=== PATIENT | male | born 1995 | race Caucasian/White ===

== ENCOUNTER 2025-09-02 14:40 | Inpatient (IN) | payer OTHER, MEDICARE, SELFPAY ==
--- OUTSIDE RECORDS SUMMARY | 2025-09-01 20:17 | XMS_ITS | Encounter Summary ---
Author Organization [facility] Address [address] [place] [id number] Care Team Providers Care Code And Test Clerk Name Role Phone Mauro Beck MD Primary Care Provider [phone] Reason for Visit * Reason Comments Suicidal * Auth/Cert (Routine) Specialty Diagnoses / Procedures Referred By Contac t Referred To Contact Diagnoses Suicidal ideations Major depressive disorder, recurrent, mild Alcohol dependence, uncomplicated Procedures ED obsv Referral ID Status Reason Start Date Expiration Date Visits Re quested Visits Authorized [id number] 1 1 Encounter Details Date Type Department Care Team (Latest Contact Info) Description 09/01/2025 8:17 PM EST - 09/02/2025 12:23 PM EST Hospital Encounter [facility] Emergency Department [address] [place] [id number] Scottie Maldonado MD [address] [place] [id number] Almas Deshpande MD [address] [place] [phone] John Jacob MD [address] [place] [phone] Suicidal ideation (Primary Dx); Depression, major, recurrent, mild; Severe alcohol use disorder ([facility]) Discharge Disposition: Psychiatric Hospital Social History Tobacco Use Types Packs/Day Years Used Date Smoking Tobacco: Never Assessed Sex and Gender Information Value Date Recorded Sex Assigned at Male 09/01/2025 8:43 PM EST Legal Sex Male 11:05 PM EST Gender Identity Male 09/01/2025 8:43 PM EST Sexual Orientation Not on file Travel History Travel Start Travel End [place] 08/02/2025 09/01/2025 documented as of this encounter Last Filed Vital Signs Vital Sign Reading Time Taken Comments Blood Pressure 97/56 09/02/2025 9:16 AM EST Pulse 110 09/02/2025 9:16 AM EST Temperature 36.6 C (97.9 F) 09/02/2025 9:16 AM EST Respiratory Rate 18 09/02/2025 9:16 AM EST Oxygen Saturation 95% 09/02/2025 9:16 AM EST Inhaled Oxygen Concentration - - Weight 95.3 kg (210 lb) 09/01/2025 8:25 PM EST Height 193 cm (6' 4 ) 09/01/2025 8:25 PM EST Body Mass Index 25.56 09/01/2025 8:25 PM EST documented in this encounter Functional Status * Are you deaf or do you have serious difficulty hearing? Answer Date of Assessment Author No 09/01/2025 8:43 PM EST Brianda Berger * Are you blind or do you have serious difficulty seeing, even when wearing glasses? Answer Date of Assessment Author No 09/01/2025 8:43 PM EST Brianda Berger * Do you have serious difficulty walking or climbing stairs? Answer Date of Assessment Author No 09/01/2025 8:43 PM EST Brianda Berger * Do you have difficulty dressing or bathing? Answer Date of Assessment Author No 09/01/2025 8:43 PM Brianda Cain * Because of a physical, mental, or emotional condition, do you have difficulty doing errands alone such as visiting the doctor? Answer Date of Assessment Author No 09/01/2025 8:43 PM EST Brianda Berger documented as of this encounter Mental Status * Because of a physical, mental, or emotional condition, do you have serious difficulty concentrating, remembering, or making decisions? Answer Entry Date Author No 09/01/2025 8:43 PM Brianda Cain documented in this encounter Discharge Instructions * Discharge Instructions* Scottie Maldonado MD - 09/02/2025 1:40 AM EST You were seen in the Emergency Department for reports of alcohol use and SI. You were admitted to ED observation after being medically cleared pending behavioral health clinician's final recommendations. Please call your doctor or return to the Emergency Department if the following occur: your symptomsget worse or do not improve,, or any other concerns. Please review all diagnostics (labs and imaging) and your Emergency Department visit with your doctor to determine if you need any additional tests, medications or other long-term management. Check MyChart or call your PCP for your pending results in the next 1-2 days. The results may indicate the need for further testing or management. A list of completed and pending results should be completed below. If not, please call the Emergency Department for more information. documented in this encounter Medications at Time of Discharge busPIRone (BUSPAR) 10 MG tablet Take 1 tablet (10 mg total) by mouth in the morning and 1 tablet (10 mg total) before bedtime. documented as of this encounter Consult Notes * Scotty Cruz, - 09/02/2025 1:18 AM ESTAssociated Order(s): BEHAVIORAL HEALTH CRISIS EVALUATION Behavioral Health Crisis Consult - Initial Assessment Patient: Michael Finnegan : 1995 Admit Date: 09/01/2025 Date of Consult: 09/02/2025 Time of Consult: 0118 AM Consult Requested by: Almas Deshpande MD Reason for Consult: Reason for Consult: Michael Finnegan, a 30-year-old male, self presents at [facility] for eval of alcohol intoxication and suicidal thoughts. Patient's BAL was 151 at 00:56.Patient told the ED that he had thoughts of using carbon monoxide poisoning. Patient reports that the parents brought him in. He reports that he was really intoxicated with alcohol. He says that hemade a comment about wanting to kill himself a couple ot times. He says that he was going to light himself off or use carbon monoxide. He has a history of suicide attempt. He has no history of inpatient psych admission. Patient reports that he feels nauseas. He lives with grandma and parents. He denies having current sucide thoughts. He denies HI, AH, VH or paranoia. He has a psychiatrist for anxiety and depression. Patient says that he uses alcohol daily with an estimate of 0.5 pints daily. Patient says that he made the SI comments due to sadness of where he is in his life. Per mother (Josefa n - [phone]), patient was actively pursuing the SI plan. Mother says that patient was driving to [place] and had a plan to go see lights in [place] and then off himself using carbon monoxide. He sent a text to his mother telling the mother to take care of his pony which is something very abraham to patient. Patient also told the mother that the mother would see him in the future. Given the aforementioned presentation, patient meets sec 12 criteria due to SI with active plan to use Carbon Monoxidepoisoning. [facility] clinician consulted with attending Dr. Scottie Maldonado and photographic supervisor Rayne Bond.Both consuls support inpatient psych placement. Chief Complaint Patient presents with Suicidal History of Present Illness: Patient is a 30 y.o. male with past medical and psychiatric history as listed who presented to the hospital on 09/01/2025 for Suicidal. Behavioral Health is consulted for SI with an active plan which per family, patient was actively pursuing. The patient is a 30-year-old male. Medical History: has no past medical history on file. has no past surgical history on file. Psychiatric History: History of psychiatric illness?: Yes History of suicidal ideation?: Yes History of non-suicidal self injury?: No History of interpersonal aggression?: No History of past DALE?: No Treatment History?: Yes Inpatient Treatment:: IOP Outpatient Treatment:: Outpatient Psychopharm Current Providers?: Yes Provider Type:: Psychiatrist Psychiatrist Name:: Dr. Pagan Collateral Contact: Yes (Spoke with patient's parents) Home Medications: Prescriptions Prior to Admission[1] Current Medications: Scheduled Medications[2] Current PRN: PRN Medications[3] Allergies: Latex, natural rubber Substance Use History Alcohol: Substance and Sexual Activity Alcohol Use Not on file In the past 12 months,have you had 5 or more drinks(men)/4 or more drinks (women) containing alcohol in one day?: Yes Use/ frequency per week:: Daily Number of drinks /type of alcohol/typical day: 1/2 pint daily Tobacco: has no history on file for tobacco use. Other: has no history on file for drug use. Addiction/Substance Use Substances last used: Never used Prescription Medications: In the past 12 months,have you used any prescription medications just for the feeling, more than prescribed or that were no prescribed for you?: No Substances: In the past 12 months, have you used any drugs?: No Medical and Psychiatric Consequences: Psychosocial Consequences: Social History: Patient lives with parents and grandma Socioeconomic History Marital status: Single Employment Status: Data Unavailable Type of Residence: Private residence Children?: No History: History Rufus status: No Personal History: History of trauma/significant life events/JORDAN?: Yes has no history on file for sexual activity. Family History: Family History[4] Family history of psychiatric illness?: No Family history of DALE?: Yes Family history of suicidal ideation, attempt or completed suicide?: Yes (Three successful SI completions in the family) Physical Exam: Patient Vitals for the past 24 hrs: BP Temp Temp src Pulse Resp SpO2 Height Weight 09/02/25 0110 105/59 -- -- (!) 92 16 95 % -- -- 09/01/25 2347 103/71 97.6 ??F (36.4 ??C) Oral (!) 96 18 94 % -- -- 09/01/25 2242 125/82 -- -- (!) 96 18 96 % -- -- 09/01/252024 -- -- -- -- -- -- 1.93 m (6' 4 ) 95.3 kg (210 lb) 09/01/252020 123/89 -- -- (!) 101 20 96 % -- -- Mental Status Exam: MSE Mental Status Exam: Appearance: good hygiene and stated age; appropriate eye contact; well kempt; clean Behavior: cooperative, calm, in good behavioral control Speech: regular rate, regular rhythm, and regular volume Language: Intact Mood: anxious, depressed Affect: Anxious, flat affect Thought Process: organized, goal-directed, logical, concrete, intact, and linear Thought Content: Endorses Si with plan which patient was actively pursuing; denies HI Hallucinations: absent Attention: attentive Concentration: WNL; intact Orientation: person, placement, date, location, president Memory: intact Fund of Knowledge: intact Impulse control: in good behavioral control Insight: Impaired Judgment: Impaired Labs, Imaging & Other Studies: Laboratory: Recent lab results have been reviewed and are notable for - see medical chart Results for orders placed or performed during the hospital encounter of 09/01/25 (from the past 24 hours) Magnesium Result Value Ref Range Magnesium, Blood 2.3 1.6 - 2.6 mg/dL Phosphorus Result Value Ref Range Phosphorus 3.0 2.3 - 4.6 mg/dL Lactic Acid with 3 Hour Reflex Result Value Ref Range Lactic Acid, Venous, Peripheral 1.4 0.5 - 2.0 mmol/L Blood Gas, Venous Result Value Ref Range pH, Venous 7.44 (H) 7.33 - 7.43 pCO2, Venous 39 38 - 50 mmHg pO2, Venous 64 (H) 30 - 50 mmHg HCO3, Venous 26 22 - 29 mmol/L Total CO2, Venous 27 22 - 27 mmol/L O2 Saturation, Venous 93.5 (H) 60 - 85 % Base Excess, Venous 2.0 -2.0 - 2.0 mmol/L Comprehensive Metabolic Panel Result Value Ref Range Sodium 145 135 - 146 mmol/L Potassium 3.8 3.4 - 5.2 mmol/L Chloride 106 98 - 110 mmol/L Total CO2/Bicarbonate 27 24 - 32 mmol/L Anion Gap 12 2 - 15 mmol/L BUN 15 7 - 24 mg/dL Creatinine, Blood 0.90 0.60 - 1.30 mg/dL Glucose, Blood 89 50 - 100 mg/dL Calcium 9.7 8.5 - 10.5 mg/dL Total Protein 8.0 6.2 - 8.2 g/dL Albumin, Blood 4.9 3.4 - 5.2 g/dL AST (SGOT) 27 11 - 40 U/L ALT (SGPT) 36 7 - 40 U/L Alkaline Phosphatase 82 40 - 130 U/L Total Bilirubin 0.3 0.2 - 1.2 mg/dL Estimated GFR(CKD-EPI) 119 mL/min/BSA CBC and Differential Result Value Ref Range WBC 6.22 3.90 - 10.80 K/uL RBC 5.23 4.42 - 5.73 M/uL Hemoglobin 15.4 14.0 - 17.3 g/dL Hematocrit 45.8 40.1 - 51.0 % MCH 29.4 25.6 - 32.2 pg MCHC 33.6 32.0 - 36.0 g/dL MCV 88 83 - 96 fL RDW 13.0 11.5 - 14.0 % Platelet Count 256 154 - 369 K/uL Neutrophil 50.0 % Lymphocyte 39.9 % Monocyte 7.1 % Eosinophil 1.1 % Basophil 0.5 % Immature Granulocyte (Kendalia, Myelo, Promyelocyte) 1.4 % Absolute Neutrophil Count 3.11 1.68 - 7.99 K/uL Absolute Immature Granulocyte (Kend[place], Myelo, Promyelocyte) 0.09 0.00 - 0.09 K/uL Absolute Lymphocyte Count 2.48 0.66 - 4.75 K/uL Absolute Monocyte Count 0.44 0.16 - 1.40 K/uL Absolute Eosinophil Count 0.07 0.00 - 0.60 K/uL Absolute Basophil Count 0.03 0.00 - 0.32 K/uL Toxicology Screen, Plasma Result Value Ref Range Acetaminophen Result,Blood <5 (L) 10 - 30 ug/mL Alcohol 151 (H) <10 mg/dL Salicylate Level, Blood <1 <30 mg/dL EKG: No studies were reviewed. C-SSRS Screener and SAFE-T: [place] Suicide Severity Rating Scale (C-SSRS) Screener 1) In the past month, have you wished you were or wished you could go to sleep and not wake up?: Yes If yes, describe (Past 1 Month): Active suicidal thoughts 2) In the past month, have you actually had any thoughts of killing yourself?: Yes If yes, describe (Past 1 Month): Active suicidal thoughts 3) Have you been thinking about how you might do this? (Past 1 Month): Yes If yes, describe (Past 1 Month): Carbon monoxide from car inhalation 4) Have you had these thoughts and had some intention of acting on them or do you have some intention of acting on them? (Past 1 Month): Yes 5) Have you started to work out or worked out the details of how to kill yourself? Did you intend to carry out this plan? (Past 1 Month): Yes If yes, describe (Past 1 Month): Has a plan 6a.) Have you ever done anything, started to do anything, or prepared to do anything to end your life?: No C-SSRS Screener Risk Level: High Management of Suicide Risk: Because the patient is actively suicidal, the patient will be further assessed for psychiatric inpatient level of care Assessment: Patient is a 30 y.o. male with past medical and psychiatric history as above now presents with suicidal thoughts with plan to via carbon monoxide poisoning. Per mother, patient was actively pursuing the plan to end his life noting that patient was en route to [place] to see the lights that before ending his life. She notes that patient sent text to her instructing her to take care of his abraham items and also to say goodbye to her. Patient has no previous inpatient admission. Patient's mother would prefer local placement in facilities such as [facility] or [facility]. Michael Finnegan, a 30-year-old male, self presents at [facility] for eval of alcohol intoxication and suicidal thoughts. Patient's BAL was 151 at 00:56. Patient told the ED that he had thoughts of using carbon monoxide poisoning. Patient reports that the parents brought him in. He reports that he was really intoxicated with alcohol. He says that he made a comment about wanting to kill himself a couple ot times. He says that he was going to light himself off or use carbon monoxide. Hehas a history of suicide attempt. He has no history of inpatient psych admission. Patient reports that he feels nauseas. He lives with grandma and parents. He denies having current sucide thoughts. He denies HI, AH, VH or paranoia. He has a psychiatrist for anxiety and depression. Patient says thathe uses alcohol daily with an estimate of 0.5 pints daily. Patient says that he made the SI comments due to sadness of where he is in his life. Per mother (Saige - [phone]), patient was activelypursuing the SI plan. Mother says that [place]. He sent a text to his mother telling the mother to take care of his pony which is something very abraham to patient. Patient also told the mother that the mother would see him in the future. Given the aforementioned presentation, patient meets sec 12 criteria due to SI with active plan to use Carbon Monoxide poisoning. Thsi clinician consulted with attending Dr. Scottie Maldonado and photographic supervisor Rayne Bond. Both consuls support inpatient psych placement. Recommendations: Sec 12 Inpatient placement Intervention and Stabilization Services Requested: Psych consult for med stabilization and Psych consult for diagnostic clarification Section 12 (legal) status and level of safety precautions: Pt meets criteria for Section 12 at this time. He has a substantial risk of Physical harm to self due to active SI plan. Disposition Recommendation: Inpatient Level of Care Patient meets criteria for opioid use disorder (OUD): No Behavioral Health Diagnosis: F33 Unspecified Depressive Disorder; F10.20 Alcohol Use Disorder Duration: Time Spent (min): 120 Discussed with Chief Design Engineer: Yes, Chief Design Engineer Name: Rayne Bond Discussed with Medical Team: Yes . Dr. Scottie Saucedo Signed by: Scotty Cruz MS [1] (Not in a hospital admission) [2] ondansetron, 4 mg, Intravenous, Once [3] [4] No family history on file. documented in this encounter ED Notes * Issac Rasmussen RN - 09/01/2025 8:35 PM EST Pt presents to the ED via private vehicle, assisted to ED by this RN and Public Safety from parkinglot for eval of ETOH intoxication. Pt states he drinks everyday and is having thoughts of killing self. Heavily intoxicated, calm and cooperative. * Scottie Maldonado MD - 09/01/2025 8:17 PM EST [facility] EMERGENCY DEPARTMENT ED Provider Note Arrival Date: 09/01/2025 HISTORY OF PRESENT ILLNESS Please see the MDM section for detailed HPI PHYSICAL EXAM ED Triage Vitals BP Heart Rate Resp Temp SpO2 09/01/25202009/01/25202009/01/25202009/01/25 2347 09/01/252020 123/89 (!) 101 20 97.6 ??F (36.4 ??C) 96 % Physical Exam Vitals and nursing note reviewed. Constitutional: General: He is not in acute distress. HENT: Head: Normocephalic and atraumatic. Right Ear: External ear normal. Left Ear: External ear normal. Nose: Nose normal. Mouth/Throat: Mouth: Mucous membranes are moist. Eyes: General: No scleral icterus. Right eye: No discharge. Left eye: No discharge. Extraocular Movements: Extraocular movements intact. Conjunctiva/sclera: Conjunctivae normal. Cardiovascular: Rate and Rhythm: Normal rate and regular rhythm. Pulses: Normal pulses. Heart sounds: Normal heart sounds. No murmur heard. No friction rub. No gallop. Pulmonary: Effort: Pulmonary effort is normal. No respiratory distress. Breath sounds: Normal breath sounds. Abdominal: General: Abdomen is flat. Bowel sounds are normal. Palpations: Abdomen is soft. Tenderness: There is no abdominal tenderness. There is no right CVA tenderness or left CVA tenderness. Musculoskeletal: General: No tenderness. Normal range of motion. Cervical back: Normal range of motion and neck supple. Right lower leg: No edema. Left lower leg: No edema. Skin: General: Skin is warm. Findings: No lesion or rash. Neurological: General: No focal deficit present. Mental Status: He is alert and oriented to person, place, and time. Mental status is at baseline. Psychiatric: Mood and Affect: Mood normal. MEDICAL DECISION MAKING & ED COURSE Labs URINALYSIS WITH URINE CULTURE REFLEX - Abnormal Result Value Ref Range Color, Urine Light yellow (*) Yellow Clarity, Urine Clear Clear pH, Urine 7.0 (*) 5.0 - 6.0 Protein, Urine 1+ Negative, 1+ Glucose, Urine Negative Negative Ketone, Urine Negative Negative, Trace Bilirubin, Urine Negative Negative Urobilinogen, Urine 0.2 mg/dL 0.2-1.0 mg/dL Blood, Urine Negative Negative Leukocyte Esterase, Urine Negative Negative Nitrite, Urine Negative Negative Specific [place], Urine 1.020 1.005 - 1.030 White Blood Cells, Urine 0-2 <5 cells/HPF Red Blood Cell, Urine 0-2 <2 cells/HPF Bacteria Urine None Seen None Seen Squamous Epithelial Cells Trace None Seen, Trace /HPF Mucous Threads 1+ (*) None Seen, Trace BLOOD GAS, VENOUS - Abnormal pH, Venous 7.44 (*) 7.33 - 7.43 pCO2, Venous 39 38 - 50 mmHg pO2, Venous 64 (*) 30 - 50 mmHg HCO3, Venous 26 22 - 29 mmol/L Total CO2, Venous 27 22 - 27 mmol/L O2 Saturation, Venous 93.5 (*) 60 - 85 % Base Excess, Venous 2.0 -2.0 - 2.0 mmol/L TOXICOLOGY SCREEN, BLOOD - Abnormal Acetaminophen Result,Blood <5 (*) 10 - 30 ug/mL Alcohol 151 (*) <10 mg/dL Salicylate Level, Blood <1 <30 mg/dL DRUG SCREEN, URINE - Abnormal Amphetamines Screen, Urine Negative Negative Barbiturates Screen, Urine Negative Negative Benzodiazepine Screen, Urine Negative Negative Buprenorphine Screen, Urine Negative Negative Cannabinoids Screen, Urine Positive (*) Negative Cocaine Metabolite Screen, Urine Negative Negative Fentanyl Screen, Urine Negative Negative Methadone Screen, Urine Negative Negative Opiates Screen, Urine Negative Negative Oxycodone Screen, Urine Negative Negative Propoxyphene Screen, Urine Negative Negative Tricyclics Screen Negative Negative Comment Comment: The cut-off concentration for a positive result for each drug is listed below: Drug Cut-off value Amphetamines >1000 ng/mL Barbiturates >200 ng/mL Benzodiazepines >300 ng/mL Buprenorphine >5 ng/mL Cannabinoids >50 ng/mL Cocaine >300 ng/mL Fentanyl >5.0 ng/mL Opiates >300 ng/mL Methadone >300 ng/mL Oxycodone >100 ng/mL This is only a screening; positive results are not confirmed by a second method; The results must be used for medical purposes only. MAGNESIUM - Normal Magnesium, Blood 2.3 1.6 - 2.6 mg/dL PHOSPHORUS - Normal Phosphorus 3.0 2.3 - 4.6 mg/dL LACTIC ACID WITH REFLEX - Normal Lactic Acid, Venous, Peripheral 1.4 0.5 - 2.0 mmol/L COMPREHENSIVE METABOLIC PANEL Sodium 145 135 - 146 mmol/L Potassium 3.8 3.4 - 5.2 mmol/L Comment: Samples tested in serum may exhibit a higher potassium value than those tested on plasma. Our current range is based on plasma testing. Chloride 106 98 - 110 mmol/L Total CO2/Bicarbonate 27 24 - 32 mmol/L Anion Gap 12 2 - 15 mmol/L BUN 15 7 - 24 mg/dL Creatinine, Blood 0.90 0.60 - 1.30 mg/dL Glucose, Blood 89 50 - 100 mg/dL Calcium 9.7 8.5 - 10.5 mg/dL Total Protein 8.0 6.2 - 8.2 g/dL Albumin, Blood 4.9 3.4 - 5.2 g/dL AST (SGOT) 27 11 - 40 U/L ALT (SGPT) 36 7 - 40 U/L Alkaline Phosphatase 82 40 - 130 U/L Total Bilirubin 0.3 0.2 - 1.2 mg/dL Estimated GFR(CKD-EPI) 119 mL/min/BSA CBC AND DIFFERENTIAL WBC 6.22 3.90 - 10.80 K/uL RBC 5.23 4.42 - 5.73 M/uL Hemoglobin 15.4 14.0 - 17.3 g/dL Hematocrit 45.8 40.1 - 51.0 % MCH 29.4 25.6 - 32.2 pg MCHC 33.6 32.0 - 36.0 g/dL MCV 88 83 - 96 fL RDW 13.0 11.5 - 14.0 % Platelet Count 256 154 - 369 K/uL Neutrophil 50.0 % Lymphocyte 39.9 % Monocyte 7.1 % Eosinophil 1.1 % Basophil 0.5 % Immature Granulocyte (Kendalia, Myelo, Promyelocyte) 1.4 % Absolute Neutrophil Count 3.11 1.68 - 7.99 K/uL Absolute Immature Granulocyte (Kendalia, Myelo, Promyelocyte) 0.09 0.00 - 0.09 K/uL Absolute Lymphocyte Count 2.48 0.66 - 4.75 K/uL Absolute Monocyte Count 0.44 0.16 - 1.40 K/uL Absolute Eosinophil Count 0.07 0.00 - 0.60 K/uL Absolute Basophil Count 0.03 0.00 - 0.32 K/uL CBC AND DIFFERENTIAL Narrative: The following orders were created for panel order CBC and Differential. Procedure Abnormality Status --------- ------ CBC and Differential[[id number]] Final result Please view results for these tests on the individual orders. No orders to display MDM Emergency Department Course: Clinical Impression Suicidal ideation (Primary) HPI SUBJECTIVE: The patient is a 30-year-old male who complains of suicidal ideation with an active plan. History was provided by the patient and his parents at the bedside. HISTORY OF PRESENT ILLNESS: The patient is a 30-year-old male presenting to the emergency department with suicidal ideation. The patient has an active plan to use carbon monoxide poisoning to end hislife. He reports drinking alcohol prior to arrival and endorsed nausea, which improved slightly after receiving Pepcid. The patient denies taking any [id number] medications or more than the pres cribed amount of his psychiatric medication. The patient has a psychiatrist but has not been in recent contact. EXTERNAL RECORD REVIEW: None provided on this case. PAST MEDICAL HISTORY: None mentioned. MEDICATIONS: None mentioned. ALLERGIES: None mentioned. SOCIAL HISTORY: None mentioned. MEDICAL DECISION MAKING AND EMERGENCY DEPARTMENT COURSE PERTINENT PHYSICAL EXAM FINDINGS: The patient is cooperative with a calm affect. The physical exam is otherwise unremarkable. ORDERED INTERVENTIONS AND WORKUP: * Labs * Pepcid Plan: Behavioral health consultation has been requested for further evaluation and management. Medical clearance will be provided once labs are resulted and reviewed. Admission to an inpatient psychiatric facility is anticipated. Disposition decisions are pending behavioral health evaluation. Assessment: Suicidal ideation. Alcohol-induced gastritis. The patient will be evaluated by the behavioral health team for disposition. Admission for inpatient psychiatric treatment is likely. Summary of HPI, ED Course, and Disposition The patient is a 30-year-old male who presented to the emergency department with suicidal ideation and an active plan. Labs were drawn for medical clearance. The patient was treated for nausea with Pepcid. The behavioral health team was consulted for further evaluation and to determine disposition,which is anticipated to be admission to an inpatient psychiatric facility. recommends inpatient level of care. Bed search has been initiated. Med rec is pending. Impression: SI Condition: Stable Disposition: ED Obs CODING I. PROBLEMS ADDRESSED (COMPLEXITY) Problems Addressed (and/or Chief Complaints): Suicidal ideation Past Medical History impacting the current visit: None mentioned. Past Surgical History: impacting the current visit: None mentioned. Differential Diagnosis includes: Usual and unusual differentials for the patient's presentation have been considered other than a primary psychiatric condition including but not limited to acidosis, ingestions of various componds including drugs and alcohol as well as medication side effects, encephalopathy, endocrinologic emergencies including hypoglycemia and thyroid disorders, electrolyte derangements, infections, traumatic injuries, ischemia, stroke or seizure-like acitvities. II. DATA REVIEWED AND ANALYZED Non-ED independent sources of history and outside records obtained/reviewed: [facility] Outpatient records History obtained from independent historian: Family Independent Interpretation of Tests: Rhythm Strip EKG Imaging including None mentioned. Lab work: See detailed list of lab work that was ordered, obtained, and interpreted above. III. MANAGEMENT AND RISK Consideration of Testing/Treatment Not Performed: None mentioned. Management discussed with and summary of discussion: Consult, see summary of discussion above. Consideration of Escalation/Disposition: The patient presents with active suicidal ideation with a specific plan, which represents a high risk for self-harm. Given this acute risk, the patient requires inpatient psychiatric evaluation and stabilization. Discharge from the emergency department is unsafe. Prescriptions given or considered: None mentioned. Social determinants of health significantly affecting care/contributing to elevated risk of morbidity/mortality: Problems with primary support group Scottie Maldonado MD 09/02/25 1615 documented in this encounter Miscellaneous Notes * Psych Progress Note - Rosy Carpenter - 09/02/2025 10:19 AM EST Patient: Michael Finnegan Accepting Facility: [facility] Accepting Facility Address: [place] [address], [address] [place] [address] Accepting MD: Dr. Rodolfo Matthews Arrival Time: 2p Nurse to Nurse Report: They will call the ED Other Labs or Needs: None HCP/Guardian (if applicable): None Reason for Section 12: SI Information Given To: Secure chat * ED Obs Note - Aleisha Wayne NP - 09/02/2025 8:26 AM EST ED Observation Daily Note Service Date: 09/02/2025 30-year-old male initially presented to the emergency department with suicidal ideation with plan. There have been no issues with this patient overnight. They continue in observation status after being medically cleared by initial provider. General: Alert. HEENT: Normal ENT inspection. Pupils equal and round. EOMI. Neck: Supple. Respiratory: No Respiratory Distress. Cardiovascular/Chest: RRR. Neurological: No weakness. No numbness. Alert and Oriented x4. Mood: appropriate The patient was admitted into ED observation status to allow for further evaluation until safe disposition arises. The patient will be closely monitored for changes in medical or psychiatric status. Please see initial ED provider note for full details of case. Patient seen and followed by our psychiatric team. Clinical Impression Suicidal ideation (Primary) Discharge day management more than 30 minutes?: No ERICK Delacruz NP 09/02/25 0899 Patient has been accepted at [facility] for transfer this afternoon. He will be taken out of observation status and transferred via BLS under section 12. Aleisha Wayne NP 09/02/25 1022 documented in this encounter Plan of Treatment Not on file documented as of this encounter Procedures Procedure Name Priority Date/Time Associated Diagnosis Comments DRUG SCREEN, URINE STAT 09/02/2025 10 :45 AM EST URINALYSIS WITH URINE CULTURE REFLEX STAT 09/02/2025 1:55 AM EST TOXICOLOGY SCREEN, BLOOD STAT 09/02/2025 12:56 AM EST ECG 12-LEAD STAT 09/01/2025 11:06 PM EST LACTIC ACID WITH REFLEX STAT 09/01/2025 9:57 PM EST CBC AND DIFFERENTIAL STAT 09/01/2025 9:57 PM EST CBC AND DIFFERENTIAL STAT 09/01/2025 9:57 PM EST PHOSPHORUS STAT 09/01/2025 9:57 PM EST MAGNESIUM STAT 09/01/2025 9:57 PM EST BLOOD GAS, VENOUS STAT 09/01/2025 9:5 7 PM EST COMPREHENSIVE METABOLIC PANEL STAT 09/01/2025 9:57 PM EST documented in this encounter Results * (ABNORMAL) Drug Screen, Urine (09/02/2025 10:45 AM EST) [facility] Amphetamines Screen, Urine Negative Negative 09/02/2025 11:17 AM [facility] Barbiturates Screen, Urine Negative Negative 09/02/2025 11:17 AM [facility] Benzodiazepine Screen, Urine Negative Negative 09/02/2025 11:17 AM [facility] Buprenorphine Screen, Urine Negative Negative 09/02/2025 11:17 AM [facility] Cannabinoids Screen, Urine Positive(A) Negative 09/02/2025 11:17 AM [facility] Cocaine Metabolite Screen, Urine Negative Negative 09/02/2025 11:17 AM [facility] Fentanyl Screen, Urine Negative Negative 09/02/2025 11:17 AM [facility] Methadone Screen, Urine Negative Negative 09/02/2025 11:17 AM [facility] Opiates Screen, Urine Negative Negative 09/02/2025 11:17 AM [facility] Oxycodone Screen, Urine Negative Negative 09/02/2025 11:17 AM [facility] Propoxyphene Screen, Urine Negative Negative 09/02/2025 11:17 AM [facility] Tricyclics Screen Negative Negative 025 11:17 AM [facility] Comment 09/02/2025 11:17 AM [facility] Comment: The cut-off concentration for a positive result for each drug is listed below: Drug Cut-off value Amphetamines >1000 ng/mL Barbiturates >200 ng/mL Benzodiazepines >300 ng/mL Buprenorphine >5 ng/mL Cannabinoids >50 ng/mL Cocaine >300 ng/mL Fentanyl >5.0 ng/mL Opiates >300 ng/mL Methadone >300 ng/mL Oxycodone >100 ng/mL This is only a screening; positive results are not confirmed by a second method; The results must be used for medical purposes only. Urine URINE SPECIMEN / Unknown Collection / Unknown 09/02/2025 10:45 AM EST 09/02/2025 10:47 AM EST us Aleisha Wayne NP URINE ORDERABLES Final Resul t [facility] [address] [place] [address], [place] * (ABNORMAL) Urinalysis with Reflex to Urine Culture (09/02/2025 1:55 AM EST) Color, Urine Light yellow(A) Yellow 09/02/2025 2:20 AM [facility] Clarity, Urine Clear Clear 09/02/2025 2:20 AM [facility] pH, Urine 7.0(H) 5.0 - 6.0 09/02/2025 2:20 AM [facility] Protein, Urine 1+ Negative, 1+ 09/02/20 2:20 AM [facility] Glucose, Urine Negative Negative 09/02/2025 2:20 AM [facility] Ketone, Urine Negative Negative, Trace 09/02/2025 2:20 AM [facility] Bilirubin, Urine Negative Negative 09/02/2025 2:20 AM [facility] Urobilinogen, Urine 0.2 mg/dL 0.2-1.0 mg/dL 09/02/2025 2:20 AM [facility] Blood, Urine Negative Negative 09/02/2025 2:20 AM [facility] Leukocyte Esterase, Urine Negative Negative 09/02/2025 2:20 AM [facility] Nitrite, Urine Negative Negative 09/02/2025 2:20 AM [facility] Specific [place], Urine 1.020 1.005 - 1.030 09/02/2025 2:20 AM [facility] White Blood Cells, Urine 0-2 <5 cells/HPF 09/02/2025 2:20 AM [facility] Red Blood Cell, Urine 0-2 <2 cells/HPF 09/02/2025 2:20 AM [facility] Bacteria Urine None Seen None Seen 09/02/2025 2:20 AM [facility] Squamous Epithelial Cells Trace None Seen, Trace /HPF 09/02/2025 2:20 AM EST [facility] Mucous Threads 1+(A) None Seen, Trace 09/02/2025 2:20 AM [facility] Urine MID-STREAM URINE SPECIMEN / Unknown Collection / Unknown 09/02/2025 1:55 AM EST 09/02/2025 1:59 AM EST Scottie Maldonado MD URINE ORDERABLES Final Result Performing Organization Address [facility]/ZIP Co de Phone Number [facility] [address] [place] [phone], [place] * (ABNORMAL) Toxicology Screen, Plasma (09/02/2025 12:56 AM EST) Acetaminophen Result,Blood <5(L) 10 - 30 ug/mL 09/02/2025 1:18 AM [facility] Alcohol 151(H) <10 mg/dL 09/02/2025 1:18 AM [facility] Salicylate Level, Blood <1 <30 mg/dL 09/02/2025 1:18 AM [facility] Blood PERIPHERAL BLOOD SPECIMEN / Unknown Venipuncture / Unknown 09/02/2025 12:56 AM EST 09/02/2025 12:57 AM EST Scottie Maldonado MD LAB BLOOD ORDERABLES Final Resul t Performing Organization Address [facility] Co de Phone Number [facility] [address] [place] [phone], [place] * ECG 12 lead (09/01/2025 11:06 PM EST) Ventricular Heart Rate 90 BPM EKG B[facility] MUSE [place] Interval 148 ms EKG B[facility] MUSE QRSD Interval 90 ms EKG B[facility] MUSE QT Interval 346 ms EKG [facility] MUSE QTC Interval 425 ms EKG B[facility] MUSE P [place] 10 degrees EKG BUR MUSE R [place] 61 degrees EKG BUR MUSE T Wave [place] -8 degrees EKG BUR MUSE 09/01/2025 11:0 5 PM EST 09/02/2025 7:52 AM EST Narrative EKG BUR MUSE - 09/02/2025 7:52 AM EST SINUS RHYTHM Confirmed by Larry Deutsch ([id number]) on 09/02/2025 7:52:08 AM Procedure Note Larry Deutsch MD - 09/02/2025 SINUS RHYTHM Confirmed by Larry Deutsch ([id number]) on 09/02/2025 7:52:08 AM Scottie Maldonado MD ECG ORDERABLES Final Result EKG B[facility] MUSE [address] [place] [id number] * CBC and Differential (09/01/2025 9:57 PM EST) WBC 6.22 3.90 - 10.80 K/uL 09/01/2025 10:03 PM [facility] RBC 5.23 4.42 - 5.73 M/uL 09/01/2025 10:03 PM [facility] Hemoglobin 15.4 14.0 - 17.3 g/dL 09/01/2025 10:03 PM [facility] Hematocrit 45.8 40.1 - 51.0 % 09/01/2025 10:03 PM [facility] MCH 29.4 25.6 - 32.2 pg 09/01/2025 10:03 PM [facility] MCHC 33.6 32.0 - 36.0 g/dL 09/01/2025 10:03 PM [facility] MCV 88 83 - 96 fL 09/01/2025 10:03 PM [facility] RDW 13.0 11.5 - 14.0 % 09/01/2025 10:03 PM [facility] Platelet Count 256 154 - 369 K/uL 09/01/2025 10:03 PM [facility] Neutrophil 50.0 % 09/01/2025 10:03 PM [facility] Lymphocyte 39.9 % 09/01/2025 10:03 PM [facility] Monocyte 7.1 % 09/01/2025 10:03 PM [facility] Eosinophil 1.1 % 09/01/2025 10:03 PM [facility] Basophil 0.5 % 09/01/2025 10:03 PM [facility] Immature Granulocyte ([place], Myelo, Promyelocyte) 1.4 % 09/01/2025 10:03 PM [facility] Absolute Neutrophil Count 3.11 1.68 - 7.99 K/uL 09/01/2025 10:03 PM [facility] Absolute Immature Granulocyte ([place], Myelo, Promyelocyte) 0.09 0.00 - 0.09 K/uL 09/01/2025 10:03 PM [facility] Absolute Lymphocyte Count 2.48 0.66 - 4.75 K/uL 09/01/2025 10:03 PM [facility] Absolute Monocyte Count 0.44 0.16 - 1.40 K/uL 09/01/2025 10:03 PM [facility] Absolute Eosinophil Count 0.07 0.00 - 0.60 K/uL 09/01/2025 10:03 PM [facility] Absolute Basophil Count 0.03 0.00 - 0.32 K/uL 09/01/2025 10:03 PM [facility] Blood PERIPHERAL BLOOD SPECIMEN / Unknown Venipuncture / Unknown 09/01/2025 9:57 PM EST 09/01/2025 10:01 PM EST us Scottie Maldonado MD LAB BLOOD ORDERABLES Final Resul t [facility] [address] [place] [phone], * Comprehensive Metabolic Panel (09/01/2025 9:57 PM EST) Sodium 145 135 - 146 mmol/L 09/01/2025 10:24 PM [facility] Potassium 3.8 3.4 - 5.2 mmol/L 09/01/2025 10:24 PM [facility] Comment:Samples tested in se rum may exhibit a higher potassium value than those tested on plasma. Our current range is based on plasma testing. Chloride 106 98 - 110 mmol/L 09/01/2025 10:24 PM [facility] Total CO2/Bicarbonate 27 24 - 32 mmol/L 09/01/2025 10:24 PM [facility] Anion Gap 12 2 - 15 mmol/L 09/01/2025 10:24 PM [facility] BUN 15 7 - 24 mg/dL 09/01/2025 10:24 PM [facility] Creatinine, Blood 0.90 0.60 - 1.30 mg/dL 09/01/2025 10:24 PM [facility] Glucose, Blood 89 50 - 100 mg/dL 09/01/2025 10:24 PM [facility] Calcium 9.7 8.5 - 10.5 mg/dL 09/01/2025 10:24 PM [facility] Total Protein 8.0 6.2 - 8.2 g/dL 09/01/2025 10:24 PM [facility] Albumin, Blood 4.9 3.4 - 5.2 g/dL 09/01/2025 10:24 PM [facility] AST (SGOT) 27 11 - 40 U/L 09/01/2025 10:24 PM [facility] ALT (SGPT) 36 7 - 40 U/L 09/01/2025 10:24 PM [facility] Alkaline Phosphatase 82 40 - 130 U/L 09/01/2025 10:24 PM [facility] Total Bilirubin 0.3 0.2 - 1.2 mg/dL 09/01/2025 10:24 PM [facility] Estimated GFR(CKD-EPI) 119 mL/min/BSA 09/01/2025 10:24 PM [facility] Blood PERIPHERAL BLOOD SPECIMEN / Unknown Venipuncture / Unknown 09/01/2025 9:57 PM EST 09/01/2025 10:01 PM EST us Scottie Maldonado MD LAB BLOOD ORDERABLES Final Resul t [facility] [address] [place] [id number], [place] * (ABNORMAL) Blood Gas, Venous (09/01/2025 9:57 PM EST) pH, Venous 7.44(H) 7.33 - 7.43 09/01/2025 10:13 PM [facility] pCO2, Venous 39 38 - 50 mmHg 09/01/2025 10:13 PM [facility] pO2, Venous 64(H) 30 - 50 mmHg 09/01/2025 10:13 PM [facility] HCO3, Venous 26 22 - 29 mmol/L 09/01/2025 10:13 PM [facility] Total CO2, Venous 27 22 - 27 mmol/L 09/01/2025 10:13 PM [facility] O2 Saturation, Venous 93.5(H) 60 - 85 % 09/01/2025 10:13 PM [facility] Base Excess, Venous 2.0 -2.0 - 2.0 mmol/L 09/01/2025 10:13 PM [facility] Blood Venipuncture / Unknown 09/01/2025 9:57 PM EST 09/01/2025 10:02 PM EST us Scottie Maldonado MD LAB BLOOD ORDERABLES Final Resul t Performing Organization Address City/[facility] Co de Phone Number [facility] [address] [place] [phone], [place] * Lactic Acid with 3 Hour Reflex (09/01/2025 9:57 PM EST) Lactic Acid, Venous, Peripheral 1.4 0.5 - 2.0 mmol/L 09/01/2025 10:23 PM [facility] Blood PERIPHERAL BLOOD SPECIMEN / Unknown Venipuncture / Unknown 09/01/2025 9:57 PM EST 09/01/2025 10:01 PM EST us Scottie Maldonado MD LAB BLOOD ORDERABLES Final Resul t Performing Organization Address City/[facility]/ZIP Co de Phone Number [facility] [address] [place] [phone], [place] * Phosphorus (09/01/2025 9:57 PM EST) Phosphorus 3.0 2.3 - 4.6 mg/dL 09/01/2025 10:24 PM [facility] Blood PERIPHERAL BLOOD SPECIMEN / Unknown Venipuncture / Unknown 09/01/2025 9:57 PM EST 09/01/2025 10:01 PM EST us Scottie Maldonado MD LAB BLOOD ORDERABLES Final Resul t Performing Organization Address [facility] Co de Phone Number [facility] [address] [place] [address], * Magnesium (09/01/2025 9:57 PM EST) Magnesium, Blood 2.3 1.6 - 2.6 mg/dL 09/01/2025 10:24 PM EST [facility] Blood PERIPHERAL BLOOD SPECIMEN / Unknown Venipuncture / Unknown 09/01/2025 9:57 PM EST 09/01/2025 10:01 PM EST us Scottie Maldonado MD LAB BLOOD ORDERABLES Final Resul t Performing Organization Address [facility] de Phone Number [facility] [address] [place] [phone], documented in this encounter Visit Diagnoses Diagnosis Suicidal ideation- Primary Depression, major, recurrent, mild Severe alcohol use disorder (CMS-HCC) documented in this encounter Administered Medications Inactive Administered Medications - up to 3 most recent administrations Medication Order MAR Action Action Date Dose Rate Site 0.9% sodium chloride (NS) BOLUS 1,000 mL 1,000 mL, Intravenous, Once, On Mon09/01/25 at 2214, For 1 dose, STAT, Administer over 1 Hours New Bag 09/01/2025 10:19 PM EST 1,000 mL 1000 mL/hr famotidine (PEPCID) tablet 20 mg 20 mg, Oral, Once, 1 dose, On Mon09/02/25 at 0901 Given 09/02/2025 9:28 AM EST 20 mg famotidine (PF) (PEPCID) 20 mg in sodium chloride 0.9% (NS) (PF) 10 mL IV Push 20 mg, Intravenous, Once, 1 dose, On Mon09/01/25 at 2214, Dilute dose to 10 mL with NS and push over 2 minutes. Given 09/01/2025 10:22 PM EST 20 mg LORazepam (ATIVAN) tablet 1 mg 1 mg, Oral, Every 2 hour PRN, Starting on Mon09/02/25 at 0836, Until Mon09/02/25 at 1424, CIWA 8-15 LORazepam (ATIVAN) tablet 1 mg 1 mg, Oral, Every 4 hours PRN, Starting on Mon09/03/25 at 0836, Until Mon09/02/25 at 1424, CIWA 8-15 LORazepam (ATIVAN) tablet 2 mg 2 mg, Oral, Every 2 hour PRN, Starting on Mon09/02/25 at 0836, Until Mon09/02/25 at 1424, CIWA > 15 LORazepam (ATIVAN) tablet 2 mg 2 mg, Oral, Every 4 hours PRN, Starting on Mon09/03/25 at 0836, Until Mon09/02/25 at 1424, CIWA > 15 ondansetron (ZOFRAN) injection 4 mg 4 mg, Intravenous, Once, On Mon09/02/25 at 0148, For 1 dose Given 09/02/2025 1:59 AM EST 4 mg documented in this encounter Active and Recently Administered Medications Times are shown in EST. Scheduled Medication Order 08/31/2025 09/01/2025 09/02/2025 0.9% sodium chloride (NS) BOLUS 1,000 mL (COMPLETED) 1,000 mL, Intravenous, Once, On Mon09/01/25 at 2214, For 1 dose, STAT, Administer over 1 Hours 2219 (New Bag - Provider: Korina Shepherd RN)2354 (Stopped - Provider: Korina Shepherd RN) famotidine (PEPCID) tablet 20 mg (COMPLETED) 20 mg, Oral, Once, 1 dose, On Mon09/02/25 at 0901 0928 (Given - Provid er: Jaren Murdock RN) famotidine (PF) (PEPCID) 20 mg in sodium chloride 0.9% (NS) (PF) 10 mL IV Push (COMPLETED) 20 mg, Intravenous, Once, 1 dose, On Mon09/01/25 at 2214, Dilute dose to 10 mL with NS and push over 2 minutes. 2222 (Given - Provider: Korina Shepherd RN) ondansetron (ZOFRAN) injection 4 mg (COMPLETED) 4 mg, Intravenous, Once, On Mon09/02/25 at 0148, For 1 dose 0159 (Given - Provid er: Korina Shepherd RN) PRN Medication Order 08/31/2025 09/01/2025 09/02/2025 LORazepam (ATIVAN) tablet 1 mg(Linked Group 1) 1 mg, Oral, Every 2 hour PRN, Starting on Mon09/02/25 at 0836, Until Mon09/02/25 at 1424, CIWA 8-15 LORazepam (ATIVAN) tablet 1 mg(Linked Group 1) 1 mg, Oral, Every 4 hours PRN, Starting on Mon09/03/25 at 0836, Until Mon09/02/25 at 1424, CIWA 8-15 LORazepam (ATIVAN) tablet 2 mg(Linked Group 2) 2 mg, Oral, Every 2 hour PRN, Starting on Mon09/02/25 at 0836, Until Mon09/02/25 at 1424, CIWA > 15 LORazepam (ATIVAN) tablet 2 mg(Linked Group 2) 2 mg, Oral, Every 4 hours PRN, Starting on Mon09/03/25 at 0836, Until Mon09/02/25 at 1424, CIWA > 15 Linked Groups Order Group 1: LORazepam (ATIVAN) tablet 1 mgJump to med 1 mg, Oral, Every 2 hour PRN, Starting on Mon09/02/25 at 0836, Until Mon09/02/25 at 1424, CIWA 8-15 Followed by LORazepam (ATIVAN) tablet 1 mgJump to med 1 mg, Oral, Every 4 hours PRN, Starting on Mon09/03/25 at 0836, Until Mon09/02/25 at 1424, CIWA 8-15 Group 2: LORazepam (ATIVAN) tablet 2 mgJump to med 2 mg, Oral, Every 2 hour PRN, Starting on Mon09/02/25 at 0836, Until Mon09/02/25 at 1424, CIWA > 15 Followed by LORazepam (ATIVAN) tablet 2 mgJump to med 2 mg, Oral, Every 4 hours PRN, Starting on Mon09/03/25 at 0836, Until Mon09/02/25 at 1424, CIWA > 15 documented in this encounter Care Teams Code And Test Clerk Relationship Specialty Start Date End Date Mauro Beck MD [address] at [address] [place], [place] [id number] PCP - General Family Practice 09/01/25 documented as of this encounter
[2025-09-02 15:55] VITALS: BP 132/87; PULSE 89; RESP 17; TEMP 37.1; O2SAT 96; BMI 27.1
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
--- OUTSIDE RECORDS SUMMARY | 2025-09-02 18:56 | XMS_ITS | Clinical Summary ---
Author Organization [facility] Address [address] [facility] [address] [place] [address] Care Team Providers Care Sample Worker Name Role Phone Mauro Bcek Md Primary Care Provider [phone] Allergies No known active allergies Medications busPIRone 10 mg tablet Take 10 mg by mouth twice daily Active triamcinolone 0.1 % Cream Apply to the affected area twice daily 80 gram 2 10/09/2024 10/09/19 26 Active PREDNISONE 10 MG TABIndications: Allergic dermatitis 4 tablets daily for 4 days, then 3 tablets daily for 3 days, then 2 tablets daily for 2 days, then 1 tablet daily x1 stop 30 tablet 0 12/12/2024 Active FAMOTIDINE 20 MG TABIndications: Allergic dermatitis Take 1 tablet by mouth daily for 10 days 10 tablet 0 12/12/2024 Active Active Problems Problem Noted Date Diagnosed Date Idiopathic urticaria 01/29/2025 Assessment & Plan (02/02/2025 2:39 PM EDT): - History is consistent with idiopathic urticaria, which is usually not due to any identifiable cause and related to a confused immune response - Common triggers/risk factors (that will NOT cause anaphylaxis in the setting of idiopathic urticaria) include viral infections, NSAIDs, uncontrolled diabetes, thyroid disease (but symptoms usually do not change with improvement/worsening of thyroid levels), history of dermatographia (see below), menstrual cycles, and active H.pylori infection - Even if an above trigger is short lived, hives can either last a few weeks, a few months, or even years before resolution (sometimes they are life-long and chronic thereafter) - Some patients can experience cholinergic urticaria, which is urticaria triggered by changes in environment, such as dermatographia (urticaria stimulated by light pressure applied to the skin), pressure-induced urticaria (hives occurring within 30 min - 1 hour of heavy weight being applied to the skin, like a heavy bag), cold urticaria, heat induced urticaria, exercise-induced urticaria (the latter 3 of which can be associated with anaphylaxis above a certain threshold) - Skin/RAST testing for environmental or food allergies are NOT indicated (with the exception of urticaria ONLY associated with contact with certain environmental allergens like grass, cats, dogs, and dust) as SCIT or food avoidance will NOT cause the hives to go away (again, with the aforementioned exceptions, and even then the time and effort required for SCIT may not be warranted when daily/PRN antihistamine use can be just as effective) - Food testing in particular can cause unnecessary food avoidance to positive foods not associated with a history of anaphylaxis, which can lead to nutritional issues, food-related anxiety, decreased quality of life, and in rare cases development of true anaphylaxis to the avoided food if added back to diet after months - years of avoidance - As idiopathic urticaria does not progress to anaphylaxis, even when associated with angioedema, NO epi-pen is required (exceptions are made in cases of cholinergic urticaria, and if the patient ever starts developing SIMULTANEOUS nausea/vomiting, syncope/dizziness, dyspnea/wheezing, etc, then re-evaluation of need for epi-pen would be warranted) - For now, recommend as needed H1 and H2 antihistamines - If the patient experiences an acute severe flare, recommend the following antihistamine taper with a combination of H1 (Zyrtec 10mg, Demetrice 180mg, Xyzal 5mg, Loratidine 10mg, the latter of which I find does not control hives very well) and H2 antihistamines (Pepcid 20mg NON-CHEWABLE to avoid excess Tums ingestion): 2 pills of each BID x 14 days -> 1 pill of each BID x 14 days -> 1 pill of each daily x 14 days -> stop - If the patient's symptoms increase when they are tapering down/off their dose, they are to go back to the previous step in the taper that best controlled their symptoms for an additional 2 weeks or until their next appointment - Despite vaccines being a potential trigger for urticaria, we do NOT recommend that patients avoid vaccines and recommend instead that the patient double up on whatever dose of antihistamines they are on at the time for 2 weeks after receiving the vaccine, which is approximately the amount of time for the immune response to the vaccine to complete (I.e., if the patient is not on any antihistamines, they should start 1 pill of H1 and H2 daily x 2 weeks, if they are already on one pill of each daily, they are to start 1 pill each BID x 2 weeks) - If they are able to reach a low daily dose of antihistamines, every 2 - 3 months they can attempt to stop the antihistamines completely as hives can sometimes spontaneously resolve - PO/IM/IV steroids should be AVOIDED for acute flares as symptoms can often rebound worse than before once they are out of the patient's symptoms - The only exception to the above is when the patient's symptoms are associated with angioedema, and at that time only low doses of steroids are required in the following manner: prednisone 10mg every 8 hours until angioedema significantly improves/stops (NOT TO BE USED FOR URTICARIA ONLY AND NOT TO BE USED AFTER ANGIOEDEMA IMPROVES/RESOLVES) - If the patient is on max dose antihistamines with minimal improvement, can consider montelukast (but I usually prefer to avoid its use given risks of mood changes, depression, and nightmares in both children and adults) or Xolair (the latter of which requires failure of max dose H1 and H2 antihistamines) - Immunomodulating drugs such as tacrolimus, cyclosporin, etc. are not appropriate in this patient given fertility risks/patient's age Atopic neurodermatitis 01/29/2025 Assessment & Plan (02/02/2025 2:39 PM EDT): - Currently well controlled - Recommend daily moisturization with either Vanicream, Cetaphil, or Eucerin (or a non-scented moisturizer) during the day and Vaseline at night (note, I do not recommend Aquaphor since it contains lanolin, which can cause allergic contact dermatitis) - If areas are hard to reach due to decreased mobility, lotion applicator aids can be purchased very cheaply online or over the counter - If experiences involvement of the face, I would recommend a low potency topical steroid or preferably Protopic or Elidel as a steroid sparing agent - For the rest of the body (except for inner thighs, under arms, or any areas with thinner skin), moderate and high potency topical steroids like triamcinalone, clobetasol, etc. - For any topical steroids, these should only be utilized for 2 weeks at a time with a 1 week break inbetween uses to avoid skin thinning, tears, etc - For any topical medicated cream/ointment/lotion, they should be sealed in with a moisturizer to help increase absorption - For symptoms involving the hands, white cotton gloves should be used at night over any moisturizers and medicated cream/ointment/lotion to help with absorption - For moderate - severe flares of other areas of the main body, can consider wearing a pair of damp pjs with a dry pair on top to help increase absorption of moisturizers and medicated cream/ointment/lotion - Bleach baths can be considered for patients with recurrent superimposed staph/bacterial infections, add - cup of common 5% household bleach to a bathtub full of water (40 gallons), soak torso or just the affected part of the skin for about 10 minutes, limit diluted bleach baths to no more than twice a week, do not submerge the head and be very careful to avoid getting the diluted bleach into the eyes, rinse off with fresh water and apply moisturizer - If her eczema significantly worsens for any reason, can consider dupilumab/I believe this patient would benefit from dupilumab has they have trialed low, medium, and high potency topical steroids and protopic/elidel with persistence of symptoms - SCIT/FDA approved SLIT can sometimes help atopic dermatitis symptoms, but in some cases can sometimes make symptoms worse - Though food avoidance can sometimes help with atopic dermatitis symptoms, it often does not help enough to justify potential nutritional deficits, weight loss, etc., thus food testing is not indicated (especially since it mainly tests for anaphylactic food allergies) and in rare cases (especially in patients with eczema), unnecessary avoidance of a food positive on testing that was previously tolerated can, when added back into diet, lead to a true anaphylactic food allergy - Of note, if the patient's insurance ever requires use of Eucrisa prior to approving Protopic, Elidel, or dupilumab, Eucrisa is no longer medically recommended given its adverse side effects and unacceptably low success rate (32%) and I will not prescribe it Anxiety 10/09/2024 Change in bowel habits 12/28/2017 Autism 06/15/2017 Congenital dysplasia of right hip 06/15/2017 Warts 05/02/2014 Resolved Problems Problem Noted Date Diagnosed Date Resolved Date Generalized abdominal pain 12/28/2017 0 03/02/2021 Screening, lipid 12/28/2017 12/28/2017 Need for lipid screening 12/28/201708/2018 Immunizations Immunization Administration Dates Next Due COVID-19 (MODERNA) Vaccine, 100mcg/0.5mL, 18YRS+, IM 01/05/2021,12/03/2020 DTP Vaccine 12/11/2001, 9,12/17/1998,07/19,1997 HFlu B Conj (Unspecified Formulation) ,1997,1997,04/18 Hep B Vaccine (Unspecified Formulation) 04/18/1999,1997,12/17/1996 Influenza H1N1 Vaccine IM 07/16/2009 Influenza Vaccine, 36MOS+, S plit Virus, Single Dose Syringe (AFLURIA) 10/09/2024 Meningococcal ACWY (Menactra ) Conjugate Vaccine 04/08/2014 OPV,Trivalent (Admin before 12/18/2015) ,02/16/1999,07/19/1998,04/18 TdaP 04/26/2019,04/16/2009 Varicella Vaccine 04/16/2009 Surgical History Surgery Date Site/Laterality Comments WISDOM TEETH EXTRACTION 09/18/2012 - 09/17/2013 Medical History Medical History Date Comments Autism 06/15/2017 Congenital dysplasia of right hip 06/15/2017 Acne Family History Medical History Relation Comments No significant medical history Brother Diabetes - type II Father Congenital Hip Defect Mother Relation Status Comments Brother Alive Father Alive Mother Alive Social History Tobacco Use Types Packs/Day Years Used Date Smoking Tobacco: Never Smokeless Tobacco: Never Tobacco Cessation:Counseling Given: Not Answered Alcohol Use Standard Drinks/Week Comments No 0 (1 standard drink = 0.6 oz pur e alcohol) Hunger Vital Sign Answer Date Recorded Within the past 12 months, y ou worried that your food would run out before you got the money to buy more. Never true 10/09/19 25 Within the past 12 months, t he food you bought just didn't last and you didn't have money to get more. Never true 10/09/2024 PRAPARE - Transportation Answer Date Re corded In the past 12 months, has l ack of transportation kept you from medical appointments or from getting medications? No 09/19 In the past 12 months, has l ack of transportation kept you from meetings, work, or from getting things needed for daily living? No 10/09/2024 Depression Answer Date Recorded Last PHQ-2 0 10/09/2024 Last PHQ-9 Not on file 10/09/2024 Suicidal Ideation/Self Harm Risk Not on file 10/09/2024 Housing Stability Answer Date Recorded What is your housing situation today? Has nimo g 10/09/2024 Are you worried about losing your housing? No 10/09/[address] you li ve. Do you have problem with any of the following? (Choose all that apply) None of the Above Request Assistance Answer Date Recorded Would you like to discuss an y of the needs you identified in this survey with a member of your care team? Not applicable 10/09/2024 Urgent Assistance Needed Not on file 025 Social Isolation Answer Date Recorded How often do you feel lonely or isolated from th ose around you? Rarely 10/09/2024 Family Needs Answer Date Recorded In the past year, have you o r any family members that you live with been unable to get resources (utilities such as power, water, or phone service; clothing; childcare; medicine or other healthcare; employment; etc) when they were really needed? No needs 10/09/2024 Other Needs Not on file 10/09/2024 Safety Answer Date Recorded Do you feel physically and e motionally safe where you currently live? Yes 10/09/2024 Self-Management Confidence Answer Date Recorded How confident are you that y ou can control and manage most of your health problems? Please provide numerical response between 0 -10. 0 = Not at all confident, 10= Completely confident. 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 [employer] Not on file Not on file Not on file Last Filed Vital Signs Vital Sign Reading Time Taken Comments Blood Pressure 114/70 12/12/2024 6:49 PM EDT Pulse 86 12/12/2024 6:49 PM EDT Temperature 36.9 C (98.5 F) 12/12/2024 6:49 PM EDT Respiratory Rate 16 12/12/2024 6:49 PM EDT Oxygen Saturation 97% 12/12/2024 6:49 PM EDT Inhaled Oxygen Concentration - - Weight 85.7 kg (189 lb) 10/09/2024 11:04 AM EST Height 193 cm (6' 4 ) 10/09/2024 11:04 AM EST Body Mass Index 23.01 10/09/2024 11:04 AM EST Plan of Treatment Health Maintenance Due Date Last Done Comments HEPATITIS B VACCINE (3 of 3 - 3-dose series) 06/13/1999 04/18/1999, 1997, 12/17/1996 HEP B INITIAL SCREENING 2015 HEP C SCREENING 2015 HIV SCREENING 2015 PERIODIC HEALTH REVIEW 2019 LIPID SCREENING 04/20/2023 04/20/2018 COVID-19 Vaccine (3 - season) 2025 01/05/2021, 12/03/2020 FLU SEASONAL (#1) 05/19/2025 10/09/2024 DTAP/TDAP/TD VACCINE (7 - Td or Tdap) 04/26/2029 04/26/2019, 04/16/2009, 12/11/2001, Additional history exists HAEMOPHILUS INFLUENZA VACCINE Completed 02/16/1999, 1997, 1997, Additional history exists POLIO VACCINE Completed 12/11/2001, 06/0 09/1998, 07/19/1998, Additional history exists HEPATITIS A VACCINE Aged Out No longe r eligible based on patient's age to complete this topic PNEUMOCOCCAL VACCINE(S) Aged Out No l onger eligible based on patient's age to complete this topic RSV Vaccine //toddler Aged Out No longer eligible based on patient's age to complete this topic Procedures Procedure Name Priority Date/Time Associated Diagnosis Comments LIPID PROFILE Routine 04/20/2018 11:06 AM EDT Medicare annual wellness visit, subsequent from Last 3 Months or Most Recently Relevant to Health Maintenance Results * (ABNORMAL) LIPID PROFILE (04/20/2018 11:06 AM EDT) CHOLESTEROL 199 <=199 mg/dL 04/20/2018 4:42 PM EDT [facility] HDL 50 >=41 mg/dL 04/20/2018 4:42 PM EDT [facility] CHOL/HDL RATIO 4.0 <=4.9 04/20/2018 4:42 PM EDT [facility] LDL 137.8(H) <=130 mg/dL 04/20/2018 4:42 PM EDT [facility] TRIGLYCERIDES 56 <=149 mg/dL 04/20/2018 4:42 PM EDT [facility] FASTING STATUS Random 04/20/2018 4:42 PM EDT [facility] Blood (Blood, Venous) Venipuncture / Unknown 04/20/2018 11:06 AM EDT 04/20/2018 11:06 AM EDT Mauro Kelly Md [facility] GENERAL LAB Final Result Performing Organization Address City/State/[facility] [[email or web address]] Co de Phone Number [facility] [address] [place] [address] from Last 3 Months or Most Recently Relevant to Health Maintenance Insurance [employer] [place] [id number] Care Teams Sample Worker Relationship Specialty Start Date End Date Mauro Beck MD [address] [place] [phone] PCP - General 01/18/17
--- OUTSIDE RECORDS SUMMARY | 2025-09-02 18:56 | XMS_ITS | Encounter Summary ---
Author Organization [facility] Address [address] [facility] [address] [place] [address] Care Team Providers Care Showroom Manager Name Role Phone Mauro Beck Md Primary Care Provider [phone] Encounter Details Date Type Department Care Team (Late st Contact Info) Description 03/24/2025 Letter (Out) [facility] [address] [place] [phone] Alec Mayfield, BAG LOADER [address] [place] [phone] Social History Tobacco Use Types Packs/Day Years Used Date Smoking Tobacco: Never Smokeless Tobacco: Never Alcohol Use Standard Drinks/Week Comments No 0 [...] is your housing situation today? 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
--- OUTSIDE RECORDS SUMMARY | 2025-09-02 18:56 | XMS_ITS | Clinical Summary ---
Author Organization [facility] Address [address] [place] [id number] Care Team Providers Care Systems Design Engineer Name Role Phone Mauro Beck MD Primary Care Provider [phone] Allergies Active Allergy Reactions Criticality Noted Date Comments Latex, Natural Rubber Rash Low 09/01/2025 Medications busPIRone (BUSPAR) 10 MG tablet Take 1 tablet (10 mg total) by mouth in the morning and 1 tablet (10 mg total) before bedtime. Active Encounters Date Type Department Care Team Description 09/01/2025 8:17 PM EST - 09/02/2025 12:23 PM EST Hospital Encounter [facility] Emergency Department [address] [place] [address] Scottie Maldonado MD Treut, Peter W, MD Stonely, MD John Suicidal ideation (Primary Dx); Depression, major, recurrent, mild; Severe alcohol use disorder ([facility]) Discharge Disposition: Psychiatric Hospital 09/01/2025 Travel from Last 3 Months Social History Tobacco Use Types Packs/Day Years Used Date Smoking Tobacco: Never Assessed Sex and Gender Information Value Date Recorded Sex Assigned at Male 09/01/2025 8:43 PM EST Legal Sex Male 11:05 PM EST Gender Identity Male 09/01/2025 8:43 PM EST Sexual Orientation Not on file Travel History Travel Start Travel End [place] 08/02/2025 09/01/2025 Last Filed Vital Signs Vital Sign Reading [...] Mass Index 25.56 09/01/2025 8:25 PM EST Plan of Treatment Not on file Procedures Procedure Name Priority Date/Time Associated Diagnosis Comments DRUG SCREEN, URINE STAT 09/02/2025 10 :45 AM EST URINALYSIS WITH URINE CULTURE REFLEX STAT 09/02/2025 1:55 AM EST TOXICOLOGY SCREEN, BLOOD STAT 09/02/2025 12:56 AM EST ECG 12-LEAD STAT 09/01/2025 11:06 PM EST CBC AND DIFFERENTIAL STAT 09/01/2025 9:57 PM EST CBC AND DIFFERENTIAL STAT 09/01/2025 9:57 PM EST COMPREHENSIVE METABOLIC PANEL STAT 09/01/2025 9:57 PM EST BLOOD GAS, VENOUS STAT 09/01/2025 9:5 7 PM EST LACTIC ACID WITH REFLEX STAT 09/01/2025 9:57 PM EST PHOSPHORUS STAT 09/01/2025 9:57 PM EST MAGNESIUM STAT 09/01/2025 9:57 PM EST from Last 3 Months Results * (ABNORMAL) Drug Screen, Urine (09/02/2025 10:45 AM EST) [facility] Amphetamines Screen, Urine Negative Negative 09/02/2025 11:17 AM EST [facility] Barbiturates Screen, Urine Negative Negative 09/02/2025 11:17 AM [facility] Benzodiazepine Screen, Urine Negative Negative 09/02/2025 11:17 AM [facility] Buprenorphine Screen, Urine Negative Negative 09/02/2025 11:17 AM [facility] Cannabinoids Screen, Urine Positive(A) Negative 09/02/2025 11:17 AM [facility] Cocaine Metabolite Screen, Urine Negative Negative 09/02/2025 11:17 AM [facility] Fentanyl Screen, Urine Negative Negative 09/02/2025 11:17 AM [facility] Methadone Screen, Urine Negative Negative 09/02/2025 11:17 AM [facility] Opiates Screen, Urine Negative Negative 09/02/2025 11:17 AM [facility] Oxycodone Screen, Urine Negative Negative 09/02/2025 11:17 AM [facility] Propoxyphene Screen, Urine Negative Negative 09/02/2025 11:17 AM [facility] Tricyclics Screen Negative Negative 025 11:17 AM [facility] Comment 09/02/2025 11:17 AM [facility] Comment: The cut-off concentration for a [...] Wayne NP URINE ORDERABLES Final Resul t [facility] [address] [place] [address], [place] * (ABNORMAL) Urinalysis with Reflex to Urine Culture (09/02/2025 1:55 AM [facility]) Color, Urine Light yellow(A) Yellow 09/02/2025 2:20 AM [facility] Clarity, Urine Clear Clear 09/02/2025 2:20 AM [facility] pH, Urine 7.0(H) 5.0 - 6.0 09/02/2025 2:20 AM [facility] Protein, Urine 1+ Negative, 1+ 09/02/20 2:20 AM [facility] Glucose, Urine Negative Negative 09/02/2025 2:20 AM [facility] Ketone, Urine Negative Negative, Trace 09/02/2025 2:20 AM [facility] Bilirubin, Urine Negative Negative 09/02/2025 2:20 AM [facility] Urobilinogen, Urine 0.2 mg/dL 0.2-1.0 mg/dL 09/02/2025 2:20 AM [facility] Blood, Urine Negative Negative 09/02/2025 2:20 AM [facility] Leukocyte Esterase, Urine Negative Negative 09/02/2025 2:20 AM [facility] Nitrite, Urine Negative Negative 09/02/2025 2:20 AM [facility] Specific [place], Urine 1.020 1.005 - 1.030 09/02/2025 2:20 AM [facility] White Blood Cells, Urine 0-2 <5 cells/HPF 09/02/2025 2:20 AM [facility] Red Blood Cell, Urine 0-2 <2 cells/HPF 09/02/2025 2:20 AM [facility] Bacteria Urine None Seen None Seen 09/02/2025 2:20 AM [facility] Squamous Epithelial Cells Trace None Seen, Trace /HPF 09/02/2025 2:20 AM [facility] Mucous Threads 1+(A) None Seen, Trace 09/02/2025 2:20 AM [facility] Urine MID-STREAM URINE SPECIMEN / Unknown Collection / Unknown 09/02/2025 1:55 AM EST 09/02/2025 1:59 AM EST Scottie Maldonado MD URINE ORDERABLES Final Result Performing Organization Address [facility] Co de Phone Number [address] [address], * (ABNORMAL) Toxicology Screen, Plasma (09/02/2025 12:56 AM EST) Acetaminophen Result,Blood <5(L) 10 - 30 ug/mL 09/02/2025 1:18 AM EST [facility] Alcohol 151(H) <10 mg/dL 09/02/2025 1:18 AM EST [facility] Salicylate Level, Blood <1 <30 mg/dL 09/02/2025 1:18 AM EST [facility] Blood PERIPHERAL BLOOD SPECIMEN / Unknown Venipuncture / Unknown 09/02/2025 12:56 AM EST 09/02/2025 12:57 AM EST Scottie Maldonado MD LAB BLOOD ORDERABLES Final Resul t Performing Organization Address [facility] Co de Phone Number [address] [address], [place] * ECG 12 lead (09/01/2025 11:06 PM EST) Pathologist [facility] Ventricular Heart Rate 90 BPM EKG BUR MUSE MN Interval 148 ms EKG BUR MUSE QRSD Interval 90 ms EKG BUR MUSE QT Interval 346 ms EKG BUR MUSE QTC Interval 425 ms EKG BUR MUSE P [place] 10 degrees EKG BUR MUSE R [place] 61 degrees EKG BUR MUSE T Wave [place] -8 degrees EKG BUR MUSE 09/01/2025 11:0 5 PM EST 09/02/2025 7:52 AM EST Narrative EKG BUR MUSE - 09/02/2025 7:52 AM EST SINUS RHYTHM Confirmed by Larry Deutsch ([id number]) on 09/02/2025 7:52:08 AM Procedure Note Larry Deutsch MD - 09/02/2025 SINUS RHYTHM Confirmed by Larry Deutsch ([id number]) on 09/02/2025 7:52:08 AM us Scottie Maldonado MD ECG ORDERABLES Final Result EKG BUR MUSE [address] [place] [address] * Lactic Acid with 3 Hour Reflex (09/01/2025 9:57 PM EST) Lactic Acid, Venous, Peripheral 1.4 0.5 - 2.0 mmol/L 09/01/2025 10:23 PM [facility] Blood PERIPHERAL BLOOD SPECIMEN / Unknown Venipuncture / Unknown 09/01/2025 9:57 PM EST 09/01/2025 10:01 PM EST Scottie Maldonado MD LAB BLOOD ORDERABLES Final Resul t [facility] [address] [place] [address], [place] * CBC and Differential (09/01/2025 9:57 PM EST) Pathologist [facility] WBC 6.22 3.90 - 10.80 K/uL 09/01/2025 10:03 PM [facility] RBC 5.23 4.42 - 5.73 M/uL 09/01/2025 10:03 PM [facility] Hemoglobin 15.4 14.0 - 17.3 g/dL 09/01/2025 10:03 PM [facility] Hematocrit 45.8 40.1 - 51.0 % 09/01/2025 10:03 PM [facility] MCH 29.4 25.6 - 32.2 pg 09/01/2025 10:03 PM [facility] MCHC 33.6 32.0 - 36.0 g/dL 09/01/2025 10:03 PM [facility] MCV 88 83 - 96 fL 09/01/2025 10:03 PM [facility] RDW 13.0 11.5 - 14.0 % 09/01/2025 10:03 PM [facility] Platelet Count 256 154 - 369 K/uL 09/01/2025 10:03 PM [facility] Neutrophil 50.0 % 09/01/2025 10:03 PM [facility] Lymphocyte 39.9 % 09/01/2025 10:03 PM [facility] Monocyte 7.1 % 09/01/2025 10:03 PM [facility] Eosinophil 1.1 % 09/01/2025 10:03 PM [facility] Basophil 0.5 % 09/01/2025 10:03 PM [facility] Immature Granulocyte ([place], Myelo, Promyelocyte) 1.4 % 09/01/2025 10:03 PM [facility] Absolute Neutrophil Count 3.11 1.68 - 7.99 K/uL 09/01/2025 10:03 PM [facility] Absolute Immature Granulocyte ([place], Myelo, Promyelocyte) 0.09 0.00 - 0.09 K/uL 09/01/2025 10:03 PM [facility] Absolute Lymphocyte Count 2.48 0.66 - 4.75 K/uL 09/01/2025 10:03 PM [facility] Absolute Monocyte Count 0.44 0.16 - 1.40 K/uL 09/01/2025 10:03 PM [facility] Absolute Eosinophil Count 0.07 0.00 - 0.60 K/uL 09/01/2025 10:03 PM [facility] Absolute Basophil Count 0.03 0.00 - 0.32 K/uL 09/01/2025 10:03 PM [facility] Blood PERIPHERAL BLOOD SPECIMEN / Unknown Venipuncture / Unknown 09/01/2025 9:57 PM EST 09/01/2025 10:01 PM EST us Scottie Maldonado MD LAB BLOOD ORDERABLES Final Resul t [facility] [address] [place] [address], * Phosphorus (09/01/2025 9:57 PM EST) [facility] Signature Phosphorus 3.0 2.3 - 4.6 mg/dL 09/01/2025 10:24 PM [facility] Blood PERIPHERAL BLOOD SPECIMEN / Unknown Venipuncture / Unknown 09/01/2025 9:57 PM EST 09/01/2025 10:01 PM EST us Scottie Maldonado MD LAB BLOOD ORDERABLES Final Resul t Performing Organization Address City/[facility]/ZIP Co de Phone Number [facility] [address] [place] [address], [place] * Magnesium (09/01/2025 9:57 PM EST) Magnesium, Blood 2.3 1.6 - 2.6 mg/dL 09/01/2025 10:24 PM [facility] Blood PERIPHERAL BLOOD SPECIMEN / Unknown Venipuncture / Unknown 09/01/2025 9:57 PM EST 09/01/2025 10:01 PM EST us Scottie Maldonado MD LAB BLOOD ORDERABLES Final Resul t Performing Organization Address [facility] Phone Number [facility] [address] [place] [address], [place] * (ABNORMAL) Blood Gas, Venous (09/01/2025 9:57 PM EST) pH, Venous 7.44(H) 7.33 - 7.43 09/01/2025 10:13 PM [facility] pCO2, Venous 39 38 - 50 mmHg 09/01/2025 10:13 PM [facility] pO2, Venous 64(H) 30 - 50 mmHg 09/01/2025 10:13 PM [facility] HCO3, Venous 26 22 - 29 mmol/L 09/01/2025 10:13 PM [facility] Total CO2, Venous 27 22 - 27 mmol/L 09/01/2025 10:13 PM [facility] O2 Saturation, Venous 93.5(H) 60 - 85 % 09/01/2025 10:13 PM [facility] Base Excess, Venous 2.0 -2.0 - 2.0 mmol/L 09/01/2025 10:13 PM [facility] Blood Venipuncture / Unknown 09/01/2025 9:57 PM EST 09/01/2025 10:02 PM EST us Scottie Maldonado MD LAB BLOOD ORDERABLES Final Resul t [facility] [address] [place] [address], * Comprehensive Metabolic Panel (09/01/2025 9:57 PM EST) Sodium 145 135 - 146 mmol/L 09/01/2025 10:24 PM [facility] Potassium 3.8 3.4 - 5.2 mmol/L 09/01/2025 10:24 PM [facility] Comment:Samples tested in se rum may exhibit a higher potassium value than those tested on plasma. Our current range is based on plasma testing. Chloride 106 98 - 110 mmol/L 09/01/2025 10:24 PM [facility] Total CO2/Bicarbonate 27 24 - 32 mmol/L 09/01/2025 10:24 PM [facility] Anion Gap 12 2 - 15 mmol/L 09/01/2025 10:24 PM [facility] BUN 15 7 - 24 mg/dL 09/01/2025 10:24 PM [facility] Creatinine, Blood 0.90 0.60 - 1.30 mg/dL 09/01/2025 10:24 PM [facility] Glucose, Blood 89 50 - 100 mg/dL 09/01/2025 10:24 PM [facility] Calcium 9.7 8.5 - 10.5 mg/dL 09/01/2025 10:24 PM [facility] Total Protein 8.0 6.2 - 8.2 g/dL 09/01/2025 10:24 PM [facility] Albumin, Blood 4.9 3.4 - 5.2 g/dL 09/01/2025 10:24 PM [facility] AST (SGOT) 27 11 - 40 U/L 09/01/2025 10:24 PM [facility] ALT (SGPT) 36 7 - 40 U/L 09/01/2025 10:24 PM [facility] Alkaline Phosphatase 82 40 - 130 U/L 09/01/2025 10:24 PM EST [facility] Total Bilirubin 0.3 0.2 - 1.2 mg/dL 09/01/2025 10:24 PM EST [facility] Estimated GFR(CKD-EPI) 119 mL/min/BSA 09/01/2025 10:24 PM [facility] Blood PERIPHERAL BLOOD SPECIMEN / Unknown Venipuncture / Unknown 09/01/2025 9:57 PM EST 09/01/2025 10:01 PM EST us Scottie Maldonado MD LAB BLOOD ORDERABLES Final Resul t [facility] [address] [place] [address], from Last 3 Months Insurance MEDICARE [facility] MEDICARE [employer] MEDICARE Member Subscriber Plan / Payer (Ef fective 2017-Present) Name:Michael Finnegan Member ID:[id number] Relation to Subscriber:Self Name:Michael Finengan Subscriber ID:[id number] Payer ID:Not on file Group ID:Not on file Type:Traditional / Indemnity Address: [address] MEDICARE [facility] Care Teams Systems Design Engineer Relationship Specialty Start Date End Date Mauro Beck MD [address] [place] [phone] PCP - General Family Practice 09/01/25
--- OUTSIDE RECORDS SUMMARY | 2025-09-02 18:56 | XMS_ITS | Encounter Summary ---
Author Organization [facility] Address [address] [place] [address] Care Team Providers Care Court Security Officer Name Role Phone Mauro Beck MD Primary Care Provider [phone] Encounter Details Date Type Department Care Team (Latest Contact Info) Description 09/01/2025 Travel Social History Tobacco Use Types Packs/Day Years Used Date Smoking Tobacco: Never Assessed Sex and Gender Information Value Date Recorded Sex Assigned at Male 09/01/2025 8:43 PM EST Legal Sex Male 11:05 PM EST Gender Identity Male 09/01/2025 8:43 PM EST Sexual Orientation Not on file Travel History Travel Start Travel End [place] 08/02/2025 09/01/2025 documented as of this encounter Plan of Treatment Not on file documented as of this encounter Visit Diagnoses Not on filedocumented in this encounter Care Teams Court Security Officer Relationship Specialty Start Date End Date Mauro Beck MD [address] [place] [id number] PCP - General Family Practice 09/01/25 documented as of this encounter
[2025-09-02 20:00] VITALS: BP 133/82; PULSE 99; RESP 15; TEMP 36.6; O2SAT 96
[2025-09-03 08:00] VITALS: BP 104/59; PULSE 69; RESP 16; TEMP 36.2; O2SAT 96
[2025-09-03 08:44] LABS: Cholesterol 213 mg/dL (<200); HDL Cholesterol 49 mg/dL (>40); Magnesium 2.3 mg/dL (1.6-2.6); Triglycerides 212 mg/dL (<150)
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
[2025-09-03 08:58] LABS: Free T4 (Free Thyroxine) 0.87 ng/dL (0.71-1.85); Thyroid Stimulating Hormone 2.64 uIU/mL (0.32-4.0)
[2025-09-03 09:12] LABS: Folate 11.8 ng/mL (> or = 4.0); Vitamin B12 437 pg/mL (200-900)
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
[2025-09-03 19:42] VITALS: BP 130/87; PULSE 93; RESP 16; TEMP 36.9; O2SAT 97
[2025-09-04 08:00] VITALS: BP 119/79; PULSE 77; RESP 16; TEMP 36.4; O2SAT 97
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
[2025-09-04 19:55] VITALS: BP 121/80; PULSE 89; RESP 16; TEMP 37.1; O2SAT 98
[2025-09-05 08:00] VITALS: BP 110/65; PULSE 101; TEMP 36; O2SAT 98
[2025-09-05] MEDS: Hydrocortisone 1 % Cream 28.35 GM TUBE 1 APPL TOPICAL (09:01)
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
--- NOTE | 2025-09-05 17:43 | P.DS_ITS ---
DS: Providers Provider Date of admission: 09/02/25 14:40 Primary care physician: Unknown Physician Consults: 09/02/25 15:29 Consult to Hospitalist Routine Comment: Consulting Provider: [facility] [place] [facility] Reason For Exam: Admission Physical 09/02/25 16:25 Addiction Medicine Provider Routine Consulting Provider: Addiction Covering Reason for consultation: Daily alcohol use 0.5-1 pints of rum daily for the past year 09/02/25 17:54 Addiction Medicine Provider Routine Consulting Provider: Addiction Covering Reason for consultation: alcohol use disorder since age 16, ?Naltrexone, rec overy coaching Has provider been notified: No DS: Diagnosis Discharge Diagnosis (1) PTSD (post-traumatic stress disorder): Status: Acute (2) Major depression: Status: Acute (3) Anxiety: Status: Acute (4) Alcohol use disorder: Status: Acute DS: Medications Discharge Medications Home Medications: Previous Rx's ?Medication ?Instructions ?Recorded acetaminophen 325 mg tablet 650 mg (2 x 325 mg) PO Q6H PRN 09/04/25 Headache/Pain, Scale 1-10 #0 tabs folic acid 1 mg tablet 1 mg PO DAILY #30 tabs 09/04 hydrocortisone 1 % topical cream 1 appl topical BID SD N IV site 09/04/25 rash #28 grams hydroxyzine HCl 25 mg tablet 25 mg PO Q6H PRN mild anx iety #15 09/04/25 tabs multivitamin (Daily-Kinjal tablet) 1 tab PO DAILY #30 ta bs 09/04/25 naltrexone 50 mg tablet 25 mg (1/2 x 50 mg) PO DAILY #30 09/04/25 tabs sertraline 25 mg tablet 25 mg PO DAILY #30 tabs 08/18 05/12 thiamine mononitrate (vit B1) 100 100 mg PO DAILY #30 tabs 09/04/25 mg tablet trazodone 50 mg tablet 50 mg PO BEDTIME MRX1 PRN In somnia 09/04/25 #60 tabs buspirone 10 mg tablet 10 mg PO BID #90 tabs Data Data Completed and Pending Completed studies during hospitalization [Text1]: 09/03/25 07:44 Estimat Average Glucose 108 Hemoglobin A1c % 5.4 Magnesium 2.3 Triglycerides 212 H Cholesterol 213 H LDL Cholesterol, Calc 122 H HDL Cholesterol 49 Vitamin B12 437 Folate 11.8 TSH 2.64 Free T4 0.87 DS: Summary Time Spent with Patient Time attestation: Total time managing care of this patient today ____ minutes. Discharge Plan Discharge Anticipated Discharge Date/Time: 09/05/25 12:00 Patient Disposition: Home, Self-Care Discharge Diagnosis: Autism PTSD Recurrent Major Depression Anxiety Alcohol use disorder Referrals: [facility] with Mario Ying M.D. [Other] - 09/23/25 11:20 am [facility] [Other] - 1 Week Referral Note: workers' compensation hearings officer advocated for Brayan to be assigned a therapist as soon as one comes available. The agency did let social work know Brayan is on the waitlist for a therapist. Please continue to follow up. [facility] Meetings in [place], [place] [Other] - 1 Week Referral Note: Please refer to these resources as needed. [email or web address] Physician,Unknown J [Primary Care Provider, Medical] - 1 Week Discharge Medications: New acetaminophen 325 mg Tablet 650 mg PO Q6H PRN (Reason: Headache/Pain, Scale 1-10) Qty: 0 0RF multivitamin [Daily-Kinjal] Tablet 1 tab PO DAILY Qty: 30 0RF trazodone 50 mg Tablet 50 mg PO BEDTIME MRX1 PRN (Reason: Insomnia) Qty: 60 0RF naltrexone 50 mg Tablet 25 mg PO DAILY Qty: 30 0RF hydrocortisone 1 % Cream 1 appl topical BID PRN (Reason: IV site rash) Qty: 28 0RF Protocol: Apply to: Apply to: IV site rash sertraline 25 mg Tablet 25 mg PO DAILY Qty: 30 0RF folic acid 1 mg Tablet 1 mg PO DAILY Qty: 30 0RF hydroxyzine HCl 25 mg Tablet 25 mg PO Q6H PRN (Reason: mild anxiety) Qty: 15 0RF thiamine mononitrate (vit B1) 100 mg Tablet 100 mg PO DAILY Qty: 30 0RF buspirone 10 mg tablet 10 mg PO BID Qty: 90 0RF Rx Instructions: and 10 mg daily prn for anxiety Discontinued buspirone 10 mg tablet 10 mg PO BID Discharge Orders: Discharge Order (Routine); Ordered 09/05/25 Ordered By: Sonja Barnard Diet: Advance to usual diet Activity on Discharge: As tolerated Stand Alone Forms: Patient Portal Discharge page, Community Support Print Language: Azerbaijani Care Plan Goals: Maintain mood and safe behaviors Take medications as prescribed Continue to pursue sobriety Practice coping skills Continue with out patient providers and reach out to them as needed Health Concerns: Mood stability and behaviors Sobriety Plan of Treatment: Follow up with PCP, psychiatric providers Take medications as prescribed Assessment: Pt is fully oriented and without SI/HI. Pt has insight and judment that is intact and wants to continue treatment. Pt is not in imminent risk of harm to self or others and has a safety plan that includes presenting to the closest ER or calling 911 if feeling unsafe. Pt has been observed closely by nursing and unit staff throughout admission Pt has not engaged in any behaviors that suggest dangerousness to self or others and has demonstrated appropriate behaviors and impulse control. Discharge Date/Time: 09/05/25 13:15
== END 2025-09-05 13:15 | disposition home or self-care (01) | DRG 881 ==
PROVIDERS: Clinical Nurse Specialist Psychiatric/Mental Health, Adult; Admitting Provider Psychiatry & Neurology Psychiatry; Visit Provider Psychiatry & Neurology Psychiatry
DX: F32.9 Major depressive disorder, single episode, unspecified (principal); F43.10 Post-traumatic stress disorder, unspecified; F10.90 Alcohol use, unspecified, uncomplicated; F41.9 Anxiety disorder, unspecified; F84.0 Autistic disorder; Z91.040 Latex allergy status; Z79.899 Other long term (current) drug therapy
CPT/HCPCS: 36415; 80061; 82607; 82746; 83036; 83735; 84439; 84443

== ENCOUNTER → 2025-09-02 14:40 | Outpatient (BNV) | payer OTHER, SELFPAY | PROVIDERS: Admitting Provider Psychiatry & Neurology Psychiatry; Visit Provider Nurse Practitioner Family | DX: F10.10 Alcohol abuse, uncomplicated (principal) | CPT/HCPCS: 99221 ==

== ENCOUNTER → 2025-09-02 14:40 | Outpatient (BNV) | payer OTHER, SELFPAY | PROVIDERS: Admitting Provider Psychiatry & Neurology Psychiatry; Visit Provider Clinical Nurse Specialist Psychiatric/Mental Health, Adult | DX: F43.10 Post-traumatic stress disorder, unspecified (principal); F10.90 Alcohol use, unspecified, uncomplicated; F32.9 Major depressive disorder, single episode, unspecified; F41.9 Anxiety disorder, unspecified; F84.0 Autistic disorder | CPT/HCPCS: 90792 ==